=== PATIENT | female | born 1960 | race Caucasian/White ===

== ENCOUNTER 2017-03-07 07:58 | Day surgery (SDC) | payer OTHER ==
[~2017-03-07] VITALS: Ht 152.4 cm; Wt 68.0 kg
--- NOTE | ~2017-03-07 | EGD ---
EGD REPORT [facility] [address]. [id number] NAME: YANETH PERSAUD : 56 STATUS : REG [facility] PAT#: [id number] AGE: 56 ADM/REG DATE : 03/07/17 MR#: [id number] REPORT SERV DATE: 03/07/17 DICTATED BY: LIDYA TERESA DATE: 03/07/17 REPORT STATUS : Draft TRANSCRIBED BY: [facility] DATE: 03/07/17 Endoscopy Center Patient Name: Yaneth Persaud Date of : 1960 Attending MD: LIDYA TERESA MD Procedure Date No Time: 03/07/2017 Procedure: Colonoscopy Indications: High risk colon cancer surveillance: Personal history of colonic polyps, Last colonoscopy: September 2013 Referring MD: KWADWO HUSSEIN MD Medicines: See the Anesthesia note for documentation of the administered medications Complications: No immediate complications. Procedure: Pre-Anesthesia Assessment: - ASA Grade Assessment: III - A patient with severe systemic disease. After I obtained informed consent, the scope was passed under direct vision. Throughout the procedure, the patient's blood pressure, pulse, and oxygen saturations were monitored continuously. The PCF [id number] was introduced through the anus and advanced to the terminal ileum, with identification of the appendiceal orifice and IC valve. The colonoscopy was performed without difficulty. The patient tolerated the procedure well. The quality of the bowel preparation was adequate. Findings: The perianal exam was abnormal. Findings include skin tags. Internal hemorrhoids were found during retroflexion and were small. A sessile polyp was found in the cecum. The polyp was 8 mm in size. The polyp was removed with a cold snare. Resection and retrieval were complete. A sessile polyp was found in the descending colon. The polyp was small in size. The polyp was removed with a cold biopsy forceps. Resection and retrieval were complete. A sessile polyp was found in the sigmoid colon. The polyp was small in size. The polyp was removed with a cold biopsy forceps. Resection and retrieval were complete. A sessile polyp was found in the rectum. The polyp was small in size. The polyp was removed with a cold biopsy forceps. Resection and retrieval were complete. Impression: - Perianal skin tags found on perianal exam. - Internal hemorrhoids. - One 8 mm polyp in the cecum. Resected and retrieved. EGD REPORT [address] [place]. [address] NAME: YANETH PERSAUD : 56 STATUS : REG [facility]#: [id number] AGE: 56 ADM/REG DATE : 03/07/17 MR#: [id number] REPORT SERV DATE: 03/07/17 DICTATED BY: LIDYA TERESA DATE: 03/07/17 REPORT STATUS : Draft TRANSCRIBED BY: [employer] DATE: 03/07/17 - One small polyp in the descending colon. Resected and retrieved. - One small polyp in the sigmoid colon. Resected and retrieved. - One small polyp in the rectum. Resected and retrieved. Recommendation: - Patient has a contact number available for emergencies. The signs and symptoms of potential delayed complications were discussed with the patient. Return to normal activities tomorrow. Written discharge instructions were provided to the patient. - Regular diet. - Continue present medications. - Repeat colonoscopy for surveillance based on pathology results. - FOR YOUR BIOPSY RESULTS: Please go to [email or web address] and register to receive your results via the portal. Your biopsy results will be posted there in about 7 to 10 days. IF you do not see result in 10 days, call office. Procedure Code(s): --- Professional --- 26783, Colonoscopy, flexible, proximal to splenic flexure; with removal of tumor(s), polyp(s), or other lesion(s) by snare technique 49245, 59, Colonoscopy, flexible, proximal to splenic flexure; with biopsy, single or multiple Diagnosis Code(s): --- Professional --- K64.4, Residual hemorrhoidal skin tags K64.8, Other hemorrhoids K62.1, Rectal polyp D12.5, Benign neoplasm of sigmoid colon D12.4, Benign neoplasm of descending colon D12.0, Benign neoplasm of cecum Z86.010, Personal history of colonic polyps CPT copyright 2013 [employer]. All rights reserved. The codes documented in this report are preliminary and upon grape grower review may be revised to meet current compliance requirements. Lidya Teresa MD LIDYA TERESA MD 03/07/2017 10:29 AM EGD REPORT [facility] [address] [address] NAME: YANETH PERSAUD : 56 STATUS : REG [facility] PAT#: [id number] AGE: 56 ADM/REG DATE : 03/07/17 MR#: [id number] REPORT SERV DATE: 03/07/17 DICTATED BY: LIDYA TERESA DATE: 03/07/17 REPORT STATUS : Draft TRANSCRIBED BY: [email or web address] DATE: 03/07/17 This report has been signed electronically. Number of Addenda: 0 Note Initiated On: 03/07/2017 10:03 AM Scope Withdrawal Time 0 hours 11 minutes 49 seconds [address] [place] [address] [id number]
[~2017-03-07 07:58] MED LIST: ACET500CAP PO; ANASPAZ0.125 MG SL; COZ25 PO; ETODOLAC500 MG PO; EXCEDRIN MIGRA1 EAC1 PO; TRAZ50 PO; ULTRAM50 PO
== END 2017-03-07 23:59 | disposition home health service (06) ==
LOC: DMU 07:58
PROVIDERS: Internal Medicine Gastroenterology
PROC: 0DBP8ZX Excision of Rectum, Via Natural or Artificial Opening Endoscopic, Diagnostic (ICD-10-PCS; 2017-03-07)
PROC: 0DBN8ZX Excision of Sigmoid Colon, Via Natural or Artificial Opening Endoscopic, Diagnostic (ICD-10-PCS; 2017-03-07)
PROC: 0DBH8ZZ Excision of Cecum, Via Natural or Artificial Opening Endoscopic (ICD-10-PCS; principal; 2017-03-07 09:30)
PROC: 0DBM8ZX Excision of Descending Colon, Via Natural or Artificial Opening Endoscopic, Diagnostic (ICD-10-PCS; 2017-03-07 09:30)
DX: Z12.11 Encounter for screening for malignant neoplasm of colon (principal); D12.0 Benign neoplasm of cecum; K62.1 Rectal polyp; K64.8 Other hemorrhoids; K64.4 Residual hemorrhoidal skin tags; I10 Essential (primary) hypertension; K21.9 Gastro-esophageal reflux disease without esophagitis; G47.33 Obstructive sleep apnea (adult) (pediatric); Z99.89 Dependence on other enabling machines and devices; Z86.010 Personal history of colon polyps; Z86.73 Personal history of transient ischemic attack (TIA), and cerebral infarction without residual deficits; Z88.0 Allergy status to penicillin; Z88.2 Allergy status to sulfonamides; Z79.899 Other long term (current) drug therapy; Z90.710 Acquired absence of both cervix and uterus; Z98.890 Other specified postprocedural states
CPT/HCPCS: 88305